=== PATIENT | male | born 1990 | race Caucasian/White ===

== ENCOUNTER 2021-02-05 02:48 | Emergency (ER) | payer SELFPAY ==
[~2021-02-05] VITALS: Ht 170.2 cm; Wt 81.6 kg
[2021-02-05 02:55] VITALS: BP_SYST 114
--- NOTE | 2021-02-05 03:00 | NUR ---
Patient to ER bed 4 to gown for evaluation. Side rails up. Report given to Toma ALFORD.
[2021-02-05] MEDS ORDERED: LIDOCAINE/EPI 1% 1:100000 20 ML VIAL INJ ONE (03:13)
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
[2021-02-05] MEDS ORDERED: BACITRACIN 1 GM OINT TP ONE (04:03)
--- NOTE | 2021-02-05 04:17 | NUR ---
AREA WAS CLEANED AND SUTURED BY . APPLIED BACITRACIN OINTMENT TO SUTURE LINE. DIRECTIONS GIVEN TO IN REGARDS TO CARE OF AREA AND SUTURE REMOVAL IN 7 DAYS. ALL QUESTIONS ANSWERED.
[2021-02-05] MEDS ORDERED: BACI15OI13 TP (04:23)
[2021-02-05 04:45] VITALS: BP_SYST 114
--- NOTE | 2021-02-05 04:45 | NUR ---
Patient'S given written and verbal discharge instructions and verbalizes understanding. ER MD discussed with patient the results and treatment provided. Patient in stable condition. ID arm band removed. Rx OF BACITRACIN given. Patient educated on pain management and to follow up with PMD. Pain Scale 0. Opportunity for questions provided and answered. Medication side effect fact sheet provided.
[2021-02-08] MEDS ORDERED: ALBUTEROL SULFATE 0.083% 2.5 MG/3 ML VIAL.NEB INH ONE (07:08)
[2021-02-08] MEDS ORDERED: IPRATROPIUM BROM 0.5 MG/2.5 ML VIAL.NEB (ATROVENT) INH ONE (07:08)
== END 2021-02-05 04:45 | disposition home or self-care (01) ==
LOC: SED 02:48
DX: S01.81XA Laceration without foreign body of other part of head, initial encounter (principal); F10.129 Alcohol abuse with intoxication, unspecified; Y90.9 Presence of alcohol in blood, level not specified; Z79.899 Other long term (current) drug therapy; W18.39XA Other fall on same level, initial encounter; Y93.89 Activity, other specified; Y92.89 Other specified places as the place of occurrence of the external cause; Y99.8 Other external cause status
CPT/HCPCS: 99282